=== PATIENT | female | born 1945 | race Caucasian/White ===

== ENCOUNTER 2020-03-12 20:03 | Inpatient (IN) | payer MEDICARE, OTHER ==
[2020-03-12 21:06] LABS: #Lymphocytes 0.6 thou/uL (1.20-3.40); #Monocytes 0.3 thou/uL (0.11-0.59); #Neutrophils 3.8 thou/uL (1.40-6.50); %Basophils 0.2 % (0.0-1.0); %Eosinophils 0.5 % (0.0-10.0); %Lymphocytes 13.4 % (21.0-51.0); %Monocytes 5.8 % (0.0-10.0); %Neutrophils 80.1 % (42.0-75.0); Hemoglobin 11.9 g/dL (12.0-16.0); Mean Corpuscular HGB CONC 31.9 g/dL (32.0-36.0); Mean Corpuscular Hemoglobin 26.6 pg (27.0-31.0); Mean Corpuscular Volume 83.6 fL (78.0-98.0); Mean Platelet Volume 8.7 fL (7.4-10.4); Platelet Count 222 thou/uL (130-400); RBC Distribution Width 15.5 % (11.5-14.5); Red Blood Cell (RBC) Count 4.47 mill/uL (4.20-5.40); White Blood Cell (WBC) Count 4.7 thou/uL (4.8-10.8)
--- NOTE | 2020-03-12 21:15 | RAD ---
PORTABLE CHEST: 03/12/20 INDICATIONS: Cough. No comparison. There is borderline cardiomegaly with mild vascular engorgement. There are hazy patchy bilateral peripheral lung infiltrates. IMPRESSION: Bilateral peripheral lung infiltrates which could represent COVID pneumonia. Close follow-up recommen ded. POS: AGW
[2020-03-12 21:27] LABS: ALT (SGPT) 13 U/L (8-55); AST (SGOT) 22 U/L (5-34); Albumin 3.4 g/dL (3.4-4.8); Alkaline Phosphatase 78 U/L (40-110); Anion Gap 16 mmol/L (10-20); BUN (Urea Nitrogen) 10 mg/dL (9.8-20.1); Bilirubin, Total 0.3 mg/dL (0.2-1.2); Calc. Creatinine Clearance 0 mL/min (70-130); Calcium 8.7 mg/dL (7.8-10.44); Carbon Dioxide 22 mmol/L (23-31); Chloride 103 mmol/L (98-107); Estimated GFR-MDRD 78; Globulin 4.3 g/dL (2.4-3.5); Glucose 135 mg/dL (83-110); Potassium 3.9 mmol/L (3.5-5.1); Protein, Total 7.7 g/dL (6.0-8.3); Sodium 137 mmol/L (136-145)
[2020-03-12] MEDS ORDERED: cefTRIAXone\\ROCEPHIN 1 GM VIAL ONE (21:35)
[2020-03-12] MEDS ORDERED: Azithromycin 500 MG VIAL ONE (21:35)
[2020-03-12] MEDS ORDERED: Dexamethasone 10 MG/ML VIAL ONE ×2 (21:43)
--- NOTE | 2020-03-12 21:52 | PDOC.FPRHP ---
- Allergies/Adverse Reactions Allergies Allergy/AdvReac Type Severity Reaction Status Date / Time Sulfa (Sulfonamide Allergy Verified 03/13/20 01:01 Antibiotics) - Home Medications Medication Instructions Recorded Confirmed Type Amlodipine [Norvasc] 1 tab PO BID 03/13/20 03/13/20 History Apixaban [Eliquis] 5 mg PO BID 03/13/20 03/13/20 History Famotidine [Pepcid] 1 tab PO DAILY 03/13/20 03/13/20 History Metoprolol Tartrate [Lopressor] 100 mg PO DAILY 03/13/20 03/13/20 History Omeprazole 40 mg PO DAILY 03/13/20 03/13/20 History - History PMHx: PSHx: FHx: Social: - Vital signs BP: [] HR: [] RR: [] Tmax: [] Pox: []% on [] Wt: [] FMR H&P: Results - Labs Result Diagrams: 03/13/20 02:55 03/13/20 02:55 Lab results: WBC 4.7 thou/uL (4.8-10.8) L 03/12/20 20:51 Hgb 11.9 g/dL (12.0-16.0) L 03/12/20 20:51 Hct 37.4 % (36.0-47.0) 03/12/20 20:51 MCV 83.6 fL (78.0-98.0) 03/12/20 20:51 Plt Count 222 thou/uL (130-400) 03/12/20 20:51 Neutrophils % 80.1 % (42.0-75.0) H 03/12/20 20:51 Sodium 137 mmol/L (136-145) 03/12/20 20:51 Potassium 3.9 mmol/L (3.5-5.1) 03/12/20 20:51 Chloride 103 mmol/L (98-107) 03/12/20 20:51 Carbon Dioxide 22 mmol/L (23-31) L 03/12/20 20:51 BUN 10 mg/dL (9.8-20.1) 03/12/20 20:51 Creatinine 0.73 mg/dL (0.6-1.1) 03/12/20 20:51 Glucose 135 mg/dL (83-110) H 03/12/20 20:51 Lactic Acid 0.8 mmol/L (0.5-2.2) 03/12/20 20:58 Calcium 8.7 mg/dL (7.8-10.44) 03/12/20 20:51 Total Bilirubin 0.3 mg/dL (0.2-1.2) 03/12/20 20:51 AST 22 U/L (5-34) 03/12/20 20:51 ALT 13 U/L (8-55) 03/12/20 20:51 Alkaline Phosphatase 78 U/L (40-110) 03/12/20 20:51 Serum Total Protein 7.7 g/dL (6.0-8.3) 03/12/20 20:51 Albumin 3.4 g/dL (3.4-4.8) 03/12/20 20:51 FMR H&P: Upper Level - Plan Date/Time: 03/12/202149 I, [], have evaluated this patient and agree with findings/plan as outlined by pharmacist intern resident. Pertinent changes/additions are listed here.
[2020-03-12] MEDS ORDERED: Calcium Carbonate 500 MG ChewTAB PO PRN (23:57)
[2020-03-12] MEDS ORDERED: Senokot S 8.6-50 MG TAB PO PRN (23:57)
[2020-03-12] MEDS ORDERED: Ondansetron PF 4 MG/2 ML Vial IVP PRN (23:57)
[2020-03-12] MEDS ORDERED: Acetaminophen 650 MG Suppository PR PRN (23:57)
[2020-03-13 00:21] LABS: Troponin I 0.032 ng/mL (< 0.028)
[2020-03-13 01:00] VITALS: BMI 54.2
--- NOTE | 2020-03-13 01:04 | PDOC.HHP ---
Hospitalist HPI - History of Present Illness dyspnea and tremors History of Present Illness: Case of an 71y/o female with pmhx of htn and dvt on elliquis who comes to hospital due to chills and dyspnea. patient refers she was on her usual state of health until 3 days ago when she patient describes as tremors which likely are chills dyspnea and cough. patient states these symptoms kept progressing with her been completetly out of breath with just going to bathroom, for which she came to hospital. at ED arrival patient was noted to be in respiratory failure with rr in the 33 and o2 sat 90% RA. patient denies fever sputum production heaaches or vomit, does refer some nausea Hospitalist ROS - Review of Systems All other systems reviewed; all pertinent +/- noted in HPI/Subj Hospitalist History - Past Medical History Source: patient Cardiac: reports: HTN Pulmonary: reports: deep vein thrombosis - Past Surgical History Past Surgical History: reports: Appendectomy, Hysterectomy - Family History Family History: reports: no pertinent history - Social History Smoking Status: Never smoker Alcohol: reports: None Drugs: reports: none - Exam General Appearance: awake alert Eye: PERRL, anicteric sclera ENT: normocephalic atraumatic, no oropharyngeal lesions Neck: supple, symmetric, no JVD Heart: RRR, no murmur, no gallops Respiratory: CTAB, no wheezes, no rales, tachypneic Gastrointestinal: soft, non-tender, non-distended Extremities: no cyanosis, no clubbing, no edema Extremities - other findings: b/l stasis dermatitis Skin: normal turgor, no lesions, no rashes Neurological: cranial nerve grossly intact, normal sensation to touch Musculoskeletal: normal tone, normal strength, no muscle wasting Psychiatric: normal affect, normal behavior, A&O x 3 Hospitalist Results - Labs Result Diagrams: 03/12/20 20:51 03/12/20 20:51 Lab results: WBC 4.7 thou/uL (4.8-10.8) L 03/12/20 20:51 Hgb 11.9 g/dL (12.0-16.0) L 03/12/20 20:51 Hct 37.4 % (36.0-47.0) 03/12/20 20:51 MCV 83.6 fL (78.0-98.0) 03/12/20 20:51 Plt Count 222 thou/uL (130-400) 03/12/20 20:51 Neutrophils % 80.1 % (42.0-75.0) H 03/12/20 20:51 Sodium 137 mmol/L (136-145) 03/12/20 20:51 Potassium 3.9 mmol/L (3.5-5.1) 03/12/20 20:51 Chloride 103 mmol/L (98-107) 03/12/20 20:51 Carbon Dioxide 22 mmol/L (23-31) L 03/12/20 20:51 BUN 10 mg/dL (9.8-20.1) 03/12/20 20:51 Creatinine 0.73 mg/dL (0.6-1.1) 03/12/20 20:51 Glucose 135 mg/dL (83-110) H 03/12/20 20:51 Lactic Acid 0.8 mmol/L (0.5-2.2) 03/12/20 20:58 Calcium 8.7 mg/dL (7.8-10.44) 03/12/20 20:51 Total Bilirubin 0.3 mg/dL (0.2-1.2) 03/12/20 20:51 AST 22 U/L (5-34) 03/12/20 20:51 ALT 13 U/L (8-55) 03/12/20 20:51 Alkaline Phosphatase 78 U/L (40-110) 03/12/20 20:51 Troponin I 0.032 ng/mL (< 0.028) H 03/12/20 23:47 Serum Total Protein 7.7 g/dL (6.0-8.3) 03/12/20 20:51 Albumin 3.4 g/dL (3.4-4.8) 03/12/20 20:51 - Radiology Interpretation Chest x-ray Additional Comment: b/l peripheral infiltrates consistent w covid pneumonia Hospitalist H&P A/P - Problem (1) Pneumonia due to COVID-19 virus Code(s): U07.1 - COVID-19; J12.89 - OTHER VIRAL PNEUMONIA Status: Acute (2) Acute respiratory failure with hypoxia Code(s): J96.01 - ACUTE RESPIRATORY FAILURE WITH HYPOXIA Status: Acute (3) DVT (deep venous thrombosis) Code(s): I82.409 - ACUTE EMBOLISM AND THOMBOS UNSP DEEP VN UNSP LOWER EXTREMITY Status: Acute (4) HTN (hypertension) Code(s): I10 - ESSENTIAL (PRIMARY) HYPERTENSION Status: Acute (5) Stasis dermatitis of both legs Code(s): I87.2 - VENOUS INSUFFICIENCY (CHRONIC) (PERIPHERAL) Status: Acute - Plan Plan: 74y/o female with complaining of dyspnea chills and cough, found with 90s sat at RA and covid pneumonia covid pneumonia - positive test - cxr consistent with viral pneumonia - on rocephin and azithromycin prophylactically - dexamethasone 6mg ivd -lymphopenia consistent w covid 19 acute respiratoty failure - rr in the 30s - 02 sats in the 90s - 02 supplementation w goal of above 92% htn - continue home meds dvt - continue elliquis stasis dermatitis - wound care consulted
[2020-03-13 03:06] LABS: #Basophils 0.1 thou/uL (0.0-0.2); #Lymphocytes 0.5 thou/uL (1.20-3.40); #Monocytes 0.1 thou/uL (0.11-0.59); #Neutrophils 3.8 thou/uL (1.40-6.50); %Basophils 1.9 % (0.0-1.0); %Eosinophils 0.7 % (0.0-10.0); %Lymphocytes 10.8 % (21.0-51.0); %Monocytes 2.3 % (0.0-10.0); %Neutrophils 84.2 % (42.0-75.0); Hemoglobin 11.3 g/dL (12.0-16.0); Mean Corpuscular HGB CONC 32.9 g/dL (32.0-36.0); Mean Corpuscular Hemoglobin 27.5 pg (27.0-31.0); Mean Corpuscular Volume 83.7 fL (78.0-98.0); Mean Platelet Volume 8.5 fL (7.4-10.4); Platelet Count 219 thou/uL (130-400); RBC Distribution Width 15.4 % (11.5-14.5); Red Blood Cell (RBC) Count 4.12 mill/uL (4.20-5.40); White Blood Cell (WBC) Count 4.5 thou/uL (4.8-10.8)
[2020-03-13 03:39] LABS: ALT (SGPT) 14 U/L (8-55); AST (SGOT) 22 U/L (5-34); Albumin 3.2 g/dL (3.4-4.8); Alkaline Phosphatase 71 U/L (40-110); Anion Gap 19 mmol/L (10-20); BUN (Urea Nitrogen) 10 mg/dL (9.8-20.1); Bilirubin, Total 0.2 mg/dL (0.2-1.2); Calc. Creatinine Clearance 138 mL/min (70-130); Calcium 8.3 mg/dL (7.8-10.44); Carbon Dioxide 19 mmol/L (23-31); Chloride 104 mmol/L (98-107); Estimated GFR-MDRD 82; Glucose 187 mg/dL (83-110); Protein, Total 7.2 g/dL (6.0-8.3); Sodium 138 mmol/L (136-145)
[2020-03-13] MEDS: Apixaban 5 MG TAB PO SCH ×2 (08:18→20:33)
[2020-03-13] MEDS: Metoprolol Tartrate 100 MG TAB PO SCH (08:18)
[2020-03-13] MEDS: Dexamethasone 4 mg/ml Vial SLOW IVP SCH (08:19)
[2020-03-13] MEDS: Amlodipine 5 MG TAB PO SCH ×2 (08:19→20:33)
[2020-03-13] MEDS: HYDROcodone/Acetaminophen 5/325 mg Tablet PO PRN ×2 (08:48→20:35)
[2020-03-13] MEDS ORDERED: Famotidine 20 MG TAB PO SCH (09:00)
--- NOTE | 2020-03-13 13:18 | CON ---
DATE OF CONSULTATION: 03/13/2020 REASON FOR CONSULTATION: COVID pneumonia. HISTORY OF PRESENT ILLNESS: A 74-year-old with history of hypertension and obesity, who 3 days before admission developed weakness, tremor, cough without fever. This was associated with some dyspnea. Initial evaluation showed O2 saturation 94% on room air and then 97 on 2 L oxygen supplementation, temperature was normal, and BP 160/70. She had diffuse bilateral fluffy infiltrates in the lung exam, more concentrated in the lower lung regions, right and left side. Initial lab data with a sodium 137 and creatinine 0.73. Liver profile normal. Albumin 3.4. White cell count 4.7, hemoglobin 11.9, platelets 222, and 80% neutrophils. COVID PCR was positive. The patient has been given Decadron and azithromycin. She is currently awake and she is feeling a little better, not coughing as much. No headaches. No chest pain. No diarrhea. Voiding without difficulty. No nausea or vomiting. PAST MEDICAL HISTORY: 1. Hypertension. 2. Obesity. SOCIAL HISTORY: She lives in [place] with son. Son contracted COVID recently, he has done well and relatively speaking. She is retired. No smoking history. ALLERGIES: SULFA DRUGS. CURRENT MEDICATIONS: 1. Tylenol. 2. [place]. 3. Norvasc. 4. Eliquis. 5. Azithromycin. 6. Decadron. 7. Lopressor. 8. Zofran. 9. Protonix. PHYSICAL EXAMINATION: VITAL SIGNS: T-max 98.4, blood pressure 160/80, pulse 84, respirations 20, and O2 saturation 95 and she is at 3 L nasal cannula. SKIN: No areas of skin breakdown. She has a peripheral IV access. She is voiding in the diaper. No lymphadenopathy. HEENT: Ocular movements conjugate. Oral cavity with numerous missing teeth. NECK: Supple. No jugular vein distention. LUNGS: Symmetric air entry. Faint crackles at the bases. HEART: S1 and S2. Regular rate. No S3 or S4. ABDOMEN: Soft, not distended or tender. No ascites. No bladder distention. EXTREMITIES: No joint inflammatory activity. No edema. Pulses 1+ in dorsalis pedis. Moves extremities equally. NEUROLOGIC: Cognitive function appears to be intact. Speech is normal. She can speak in full sentences. LABORATORY DATA: Followup WBC 4.5 and hemoglobin 11. Creatinine 0.7. Liver profile still normal. Two sets of blood culture, no growth thus far. ASSESSMENT: 1. Hypertension. 2. Obesity. 3. COVID pneumonia, early in the course of illness, already with requirement for 3 L of supplementation of O2, but she is saturating adequately. She is on Decadron and I will go ahead and prescribe remdesivir. She is kind of borderline according to the criteria, but she looks like she is going to deteriorate further. Monitor inflammatory markers and remdesivir laboratory data to evaluate for toxicity. I have discussed the indications for emergency use authorization of the drug with the patient. I also discussed potential adverse reaction, particularly liver and kidney toxicity and monitoring that will be implemented for early detection and the fact that it seems to reduce the length of illness in the randomized control trial that was completed recently. The patient understood and agreed with the administration of the drug. Job ID: [id number]
[2020-03-13] MEDS ORDERED: REMDESIVIR (EUA) 200 MG in Sodium Chloride 0.9% 250 ML 210 ML IV SCH (14:15)
[2020-03-13] MEDS ORDERED: Prevnar 13-Val Conj/PF 0.5 ML SYRINGE IM ONE (21:00)
[2020-03-14] MEDS: HYDROcodone/Acetaminophen 5/325 mg Tablet PO PRN ×4 (00:43→22:11)
[2020-03-14 07:04] LABS: ALT (SGPT) 20 U/L (8-55); AST (SGOT) 31 U/L (5-34); Albumin 3.2 g/dL (3.4-4.8); Alkaline Phosphatase 68 U/L (40-110); Bilirubin, Direct 0.2 mg/dL (0.1-0.3); Bilirubin, Total 0.2 mg/dL (0.2-1.2)
--- NOTE | 2020-03-14 08:16 | PDOC.HOSPP ---
- Subjective Encounter Date: 03/14/20 Encounter Time: 11:00 Subjective: Patient reports feeling a bit better today. No shortness of breath at rest on O2. Persistent cough. No fever. Hasn't gotten out of bed. Uses a short walker at home due to her height. - Objective Vital Signs & Weight: Vital Signs (12 hours) Temp Pulse Resp BP Pulse Ox 03/14/20 00:00 98.1 F 90 18 152/80 H 96 03/13/20 20:33 83 Weight Admit Weight 268 lb 8 oz Weight 268 lb 8 oz I&O: 03/13/20 03/14/20 03/15/20 06:59 06:59 06:59 Intake Total 200 850 Output Total 150 800 Balance 50 50 Result Diagrams: 03/13/20 02:55 03/13/20 02:55 Hospitalist ROS - Review of Systems Constitutional: denies: fever, chills Respiratory: reports: cough. denies: shortness of breath Cardiovascular: denies: chest pain, palpitations Gastrointestinal: denies: nausea, vomiting, abdominal pain - Medication Medications: Active Medications Generic Name Dose Route Start Last Admin Trade Name Freq PRN Reason Stop Dose Admin Hydrocodone Bitart/Acetaminophen 1 tab 03/12/20 23:57 03/14/20 05:19 [place] 5/325 PO 1 tab Q4H PRN Administration Moderate Pain (4-6) Amlodipine Besylate 5 mg 03/13/20 09:00 03/13/20 20:33 Norvasc PO 5 mg BID GASTON Administration Apixaban 5 mg 03/13/20 09:00 03/13/20 20:33 Eliquis PO 5 mg BID GASTON Administration Dexamethasone 6 mg 03/13/20 09:00 03/13/20 08:19 Decadron SLOW IVP 6 mg DAILY GASTON Administration Metoprolol Tartrate 100 mg 03/13/20 09:00 03/13/20 08:18 Lopressor PO 100 mg DAILY GASTON Administration Mineral Oil/White Petrolatum 0 gm 03/13/20 09:00 03/13/20 15:54 Aquaphor 99 Gm TOP Not Given Q3D GASTON Pantoprazole Sodium 40 mg 03/13/20 09:00 03/13/20 08:19 Protonix PO 40 mg DAILY GASTON Administration Pantoprazole Sodium 40 mg 03/13/20 09:00 03/13/20 08:20 Protonix PO Not Given DAILY GASTON - Exam General Appearance: NAD, awake alert ENT: moist mucosa Heart: RRR, no murmur, no gallops, no rubs Respiratory: CTAB, no wheezes, no rales, no ronchi Gastrointestinal: soft, non-tender, non-distended, normal bowel sounds Extremities: no edema Psychiatric: normal affect, normal behavior, A&O x 3 Hosp A/P (1) Pneumonia due to COVID-19 virus Code(s): U07.1 - COVID-19; J12.89 - OTHER VIRAL PNEUMONIA Status: Acute (2) Acute respiratory failure with hypoxia Code(s): J96.01 - ACUTE RESPIRATORY FAILURE WITH HYPOXIA Status: Acute (3) HTN (hypertension) Code(s): I10 - ESSENTIAL (PRIMARY) HYPERTENSION Status: Chronic Qualifiers: Hypertension type: essential hypertension Qualified Code(s): I10 - Essential (primary) hypertension (4) DVT (deep venous thrombosis) Code(s): I82.409 - ACUTE EMBOLISM AND THOMBOS UNSP DEEP VN UNSP LOWER EXTREMITY Status: Acute Qualifiers: DVT location: lower extremity - Plan Patient on 3L NC O2. Getting Dexamethasone, Remdesivir, Azithromycin. Dr. Gold Lewis for history of DVT PT eval and get her ambulating GI proph: Pepcid BID
[2020-03-14] MEDS: Dexamethasone 4 mg/ml Vial SLOW IVP SCH (08:42)
[2020-03-14] MEDS: Apixaban 5 MG TAB PO SCH ×2 (08:42→22:10)
[2020-03-14] MEDS: Metoprolol Tartrate 100 MG TAB PO SCH (08:42)
[2020-03-14] MEDS: Amlodipine 5 MG TAB PO SCH ×2 (08:42→22:10)
[2020-03-14] MEDS: Loratadine 10 MG TAB PO PRN (14:02)
[2020-03-14] MEDS: REMDESIVIR (EUA) 100 MG in Sodium Chloride 0.9% 250 ML 230 ML IV SCH (16:06)
[2020-03-14] MEDS ORDERED: cefTRIAXone\\ROCEPHIN 1 GM in Sodium Chloride 0.9% 100 ML IVPB SCH (22:00)
[2020-03-14] MEDS: Ondansetron ODT 4 MG TAB PO PRN (22:11)
[2020-03-14] MEDS ORDERED: Azithromycin 500 MG in Sodium Chloride 0.9% 250 ML 250 ML IVPB SCH (23:00)
[2020-03-15] MEDS: HYDROcodone/Acetaminophen 5/325 mg Tablet PO PRN ×2 (03:57→20:55)
[2020-03-15 07:26] LABS: ALT (SGPT) 22 U/L (8-55); AST (SGOT) 26 U/L (5-34); Albumin 3.1 g/dL (3.4-4.8); Alkaline Phosphatase 68 U/L (40-110); Bilirubin, Direct 0.2 mg/dL (0.1-0.3); Bilirubin, Total 0.3 mg/dL (0.2-1.2); Protein, Total 6.8 g/dL (6.0-8.3)
--- NOTE | 2020-03-15 08:34 | PDOC.HOSPP ---
- Subjective Encounter Date: 03/15/20 Encounter Time: 11:00 Subjective: Patient reports SOB a bit better. Not much cough unless move around. PT came by to get her up this morning. - Objective Vital Signs & Weight: Vital Signs (12 hours) Temp Pulse Resp BP BP Pulse Ox 03/15/20 02:27 97 03/15/20 00:00 98.2 F 83 20 171/64 H 93 L 03/14/20 22:10 88 194/72 H Weight Admit Weight 268 lb 8 oz Weight 268 lb 8 oz I&O: 03/14/20 03/15/20 03/16/20 06:59 06:59 06:59 Intake Total 850 970 Output Total 800 400 Balance 50 570 Result Diagrams: 03/13/20 02:55 03/13/20 02:55 Hospitalist ROS - Review of Systems Constitutional: denies: fever, chills Respiratory: reports: cough, shortness of breath Cardiovascular: denies: chest pain, palpitations, orthopnea Gastrointestinal: denies: nausea, vomiting, abdominal pain, diarrhea - Medication Medications: Active Medications Generic Name Dose Route Start Last Admin Trade Name Freq PRN Reason Stop Dose Admin Hydrocodone Bitart/Acetaminophen 1 tab 03/12/20 23:57 03/15/20 03:57 [place] 5/325 PO 1 tab Q4H PRN Administration Moderate Pain (4-6) Amlodipine Besylate 5 mg 03/13/20 09:00 03/14/20 22:10 Norvasc PO 5 mg BID GASTON Administration Apixaban 5 mg 03/13/20 09:00 03/14/20 22:10 Eliquis PO 5 mg BID GASTON Administration Dexamethasone 6 mg 03/13/20 09:00 03/14/20 08:42 Decadron SLOW IVP 6 mg DAILY GASTON Administration REMDESIVIR (EUA) 100 mg/ 250 mls @ 250 mls/hr 03/14/20 15:00 03/14/20 16:06 Sodium Chloride IV 03/17/20 15:59 250 mls 1500 GASTON Administration Loratadine 10 mg 03/14/20 13:51 03/14/20 14:02 Claritin PO 10 mg DAILY PRN Administration Itching Metoprolol Tartrate 100 mg 03/13/20 09:00 03/14/20 08:42 Lopressor PO 100 mg DAILY GASTON Administration Mineral Oil/White Petrolatum 0 gm 03/13/20 09:00 03/13/20 15:54 Aquaphor 99 Gm TOP Not Given Q3D GASTON Ondansetron HCl 4 mg 03/12/20 23:57 03/14/20 22:11 Zofran Odt PO 4 mg Q6H PRN Administration Nausea/Vomiting Pantoprazole Sodium 40 mg 03/13/20 09:00 03/14/20 08:42 Protonix PO 40 mg DAILY GASTON Administration - Exam General Appearance: NAD, awake alert ENT: moist mucosa Heart: RRR, no murmur, no gallops, no rubs Respiratory: CTAB, no wheezes, no rales, no ronchi Gastrointestinal: soft, non-tender, non-distended, normal bowel sounds Psychiatric: normal affect, normal behavior, A&O x 3 Hosp A/P (1) Pneumonia due to COVID-19 virus Code(s): U07.1 - COVID-19; J12.89 - OTHER VIRAL PNEUMONIA Status: Acute (2) Acute respiratory failure with hypoxia Code(s): J96.01 - ACUTE RESPIRATORY FAILURE WITH HYPOXIA Status: Acute (3) HTN (hypertension) Code(s): I10 - ESSENTIAL (PRIMARY) HYPERTENSION Status: Chronic Qualifiers: Hypertension type: essential hypertension Qualified Code(s): I10 - Essential (primary) hypertension (4) DVT (deep venous thrombosis) Code(s): I82.409 - ACUTE EMBOLISM AND THOMBOS UNSP DEEP VN UNSP LOWER EXTREMITY Status: Acute Qualifiers: DVT location: lower extremity - Plan Patient on 2.5L NC O2. Getting Dexamethasone, Remdesivir, Azithromycin. Dr. Gold Lewis for history of DVT PT eval and get her ambulating GI proph: Pepcid BID
[2020-03-15] MEDS: Metoprolol Tartrate 100 MG TAB PO SCH (09:23)
[2020-03-15] MEDS: Dexamethasone 4 mg/ml Vial SLOW IVP SCH (09:23)
[2020-03-15] MEDS: Apixaban 5 MG TAB PO SCH ×2 (09:23→20:55)
[2020-03-15] MEDS: Amlodipine 5 MG TAB PO SCH ×2 (09:23→20:55)
[2020-03-15] MEDS: REMDESIVIR (EUA) 100 MG in Sodium Chloride 0.9% 250 ML 230 ML IV SCH (15:15)
[2020-03-16] MEDS: HYDROcodone/Acetaminophen 5/325 mg Tablet PO PRN ×5 (00:27→20:16)
[2020-03-16] MEDS: Acetaminophen 325 MG TAB PO PRN ×2 (01:20→23:10)
[2020-03-16 06:14] LABS: #Eosinphils 0.1 thou/uL (0.0-0.7); #Lymphocytes 1.5 thou/uL (1.20-3.40); #Monocytes 1.1 thou/uL (0.11-0.59); #Neutrophils 6.7 thou/uL (1.40-6.50); %Basophils 0.1 % (0.0-1.0); %Eosinophils 0.7 % (0.0-10.0); %Lymphocytes 15.5 % (21.0-51.0); %Monocytes 11.8 % (0.0-10.0); %Neutrophils 71.9 % (42.0-75.0); Hemoglobin 11.5 g/dL (12.0-16.0); Mean Corpuscular HGB CONC 31.5 g/dL (32.0-36.0); Mean Corpuscular Hemoglobin 26.5 pg (27.0-31.0); Platelet Count 377 thou/uL (130-400); RBC Distribution Width 15.5 % (11.5-14.5); Red Blood Cell (RBC) Count 4.34 mill/uL (4.20-5.40); White Blood Cell (WBC) Count 9.4 thou/uL (4.8-10.8)
[2020-03-16 06:38] LABS: Anion Gap 15 mmol/L (10-20); BUN (Urea Nitrogen) 22 mg/dL (9.8-20.1); CRP (Inflammatory) 4.21 mg/dL (= or < 0.5); Calc. Creatinine Clearance 142 mL/min (70-130); Calcium 8.4 mg/dL (7.8-10.44); Carbon Dioxide 26 mmol/L (23-31); Chloride 105 mmol/L (98-107); Estimated GFR-MDRD 85; Glucose 153 mg/dL (83-110); Potassium 3.6 mmol/L (3.5-5.1); Sodium 142 mmol/L (136-145)
[2020-03-16 06:40] LABS: ALT (SGPT) 21 U/L (8-55); AST (SGOT) 22 U/L (5-34); Alkaline Phosphatase 66 U/L (40-110); Bilirubin, Direct 0.2 mg/dL (0.1-0.3); Bilirubin, Total 0.3 mg/dL (0.2-1.2); Protein, Total 6.6 g/dL (6.0-8.3)
[2020-03-16] MEDS: Dexamethasone 4 mg/ml Vial SLOW IVP SCH (08:16)
[2020-03-16] MEDS: Amlodipine 5 MG TAB PO SCH ×2 (08:17→20:16)
[2020-03-16] MEDS: Apixaban 5 MG TAB PO SCH ×2 (08:17→20:16)
[2020-03-16] MEDS: Metoprolol Tartrate 100 MG TAB PO SCH (08:17)
--- NOTE | 2020-03-16 09:06 | PDOC.HOSPP ---
- Subjective Encounter Date: 03/16/20 Encounter Time: 10:00 Subjective: Patient with possibly improved SOB. Still needing 3-4L NC. Quite weak but patient states this is chronic. She has to have her help with any movement at home. He has also gotten Covid but doing better with it than her and not hospitalized. - Objective Vital Signs & Weight: Vital Signs (12 hours) Pulse BP 03/16/20 08:17 87 120/66 Weight Admit Weight 268 lb 8 oz Weight 268 lb 8 oz I&O: 03/15/20 03/16/20 03/17/20 06:59 06:59 06:59 Intake Total 970 1350 Output Total 400 1600 Balance 570 -250 Result Diagrams: 03/16/20 05:53 03/16/20 05:53 Hospitalist ROS - Review of Systems Constitutional: denies: fever, chills Respiratory: reports: cough, shortness of breath Cardiovascular: denies: chest pain, palpitations Gastrointestinal: denies: nausea, vomiting, abdominal pain - Medication Medications: Active Medications Generic Name Dose Route Start Last Admin Trade Name Freq PRN Reason Stop Dose Admin Acetaminophen 650 mg 03/12/20 23:57 03/16/20 01:20 Tylenol PO 650 mg Q4H PRN Administration Headache/Fever/Mild Pain (1-3) Hydrocodone Bitart/Acetaminophen 1 tab 03/12/20 23:57 03/16/20 08:50 [place] 5/325 PO 1 tab Q4H PRN Administration Moderate Pain (4-6) Amlodipine Besylate 5 mg 03/13/20 09:00 03/16/20 08:17 Norvasc PO 5 mg BID GASTON Administration Apixaban 5 mg 03/13/20 09:00 03/16/20 08:17 Eliquis PO 5 mg BID GASTON Administration Dexamethasone 6 mg 03/13/20 09:00 03/16/20 08:16 Decadron SLOW IVP 6 mg DAILY GASTON Administration REMDESIVIR (EUA) 100 mg/ 250 mls @ 250 mls/hr 03/14/20 15:00 03/15/20 15:15 Sodium Chloride IV 03/17/20 15:59 250 mls 1500 GASTON Administration Loratadine 10 mg 03/14/20 13:51 03/14/20 14:02 Claritin PO 10 mg DAILY PRN Administration Itching Metoprolol Tartrate 100 mg 03/13/20 09:00 03/16/20 08:17 Lopressor PO 100 mg DAILY GASTON Administration Mineral Oil/White Petrolatum 0 gm 03/13/20 09:00 03/16/20 08:17 Aquaphor 99 Gm TOP 1 applic Q3D GASTON Administration Ondansetron HCl 4 mg 03/12/20 23:57 03/14/20 22:11 Zofran Odt PO 4 mg Q6H PRN Administration Nausea/Vomiting Pantoprazole Sodium 40 mg 03/13/20 09:00 03/16/20 08:16 Protonix PO 40 mg DAILY GASTON Administration - Exam General Appearance: NAD, awake alert ENT: moist mucosa Heart: RRR, no murmur, no gallops, no rubs Respiratory: CTAB, no wheezes, no rales, no ronchi Gastrointestinal: soft, non-tender, non-distended, normal bowel sounds Psychiatric: normal affect, normal behavior, A&O x 3 Hosp A/P (1) Pneumonia due to COVID-19 virus Code(s): U07.1 - COVID-19; J12.89 - OTHER VIRAL PNEUMONIA Status: Acute (2) Acute respiratory failure with hypoxia Code(s): J96.01 - ACUTE RESPIRATORY FAILURE WITH HYPOXIA Status: Acute (3) HTN (hypertension) Code(s): I10 - ESSENTIAL (PRIMARY) HYPERTENSION Status: Chronic Qualifiers: Hypertension type: essential hypertension Qualified Code(s): I10 - Essential (primary) hypertension (4) DVT (deep venous thrombosis) Code(s): I82.409 - ACUTE EMBOLISM AND THOMBOS UNSP DEEP VN UNSP LOWER EXTREMITY Status: Acute Qualifiers: DVT location: lower extremity - Plan Patient on 3-4L NC O2. Getting Dexamethasone, Remdesivir, Azithromycin. Dr. Gold Lewis for history of DVT PT eval and get her ambulating if possible GI proph: Pepcid BID
--- NOTE | 2020-03-16 13:39 | PRG ---
DATE OF SERVICE: 03/16/2020 DIAGNOSTIC STUDIES: Ms. Fabian continues with intermittent coughing, not as much as before. Mild dyspnea. No abdominal pain. No diarrhea. OBJECTIVE: VITAL SIGNS: T-max 98.2, blood pressure 150/82, pulse 87, respirations 20, and O2 saturation 94 on 4 L nasal cannula. She had been at 2 before and then at 3, it is kind of going up and down on her requirements. LUNGS: Symmetric air entry. HEART: S1 and S2. Regular rate. ABDOMEN: Soft, not distended. EXTREMITIES: Moves extremities equally. LABORATORY DATA: White cell count is 9.4, hemoglobin 11, platelets 377, and 71% neutrophils. The D-dimer is down to 0.98, very minimal decrease. The ferritin is down from 162 to 97, and the CRP is down a bit too from 5.3 to 4.2. MEDICATIONS: She continues on Decadron, remdesivir, and Eliquis. ASSESSMENT AND DISCUSSION: 1. Hypertension. 2. Obesity. 3. COVID pneumonia, early in course of illness. This is the 7th day of illness at this point in time. Will continue Decadron and remdesivir, so we will see if looks like she is turning the corner now with decrease in inflammatory markers. Hopefully, we will see a decrease in the O2 supplementation requirements going forward. Job ID: [id number]
[2020-03-16] MEDS: REMDESIVIR (EUA) 100 MG in Sodium Chloride 0.9% 250 ML 230 ML IV SCH (14:52)
[2020-03-17] MEDS: HYDROcodone/Acetaminophen 5/325 mg Tablet PO PRN ×4 (00:57→20:11)
[2020-03-17] MEDS: Loratadine 10 MG TAB PO PRN (00:58)
[2020-03-17 06:34] LABS: ALT (SGPT) 21 U/L (8-55); AST (SGOT) 18 U/L (5-34); Alkaline Phosphatase 62 U/L (40-110); Bilirubin, Direct 0.2 mg/dL (0.1-0.3); Bilirubin, Total 0.3 mg/dL (0.2-1.2); Protein, Total 6.7 g/dL (6.0-8.3)
[2020-03-17] MEDS: Dexamethasone 4 mg/ml Vial SLOW IVP SCH (07:58)
[2020-03-17] MEDS: Amlodipine 5 MG TAB PO SCH ×2 (07:58→20:10)
[2020-03-17] MEDS: Metoprolol Tartrate 100 MG TAB PO SCH (07:58)
[2020-03-17] MEDS: Apixaban 5 MG TAB PO SCH ×2 (07:59→20:11)
--- NOTE | 2020-03-17 12:07 | PDOC.HOSPP ---
- Subjective Encounter Date: 03/17/20 Encounter Time: 12:05 Subjective: less sob, min cough - Objective Vital Signs & Weight: Vital Signs (12 hours) Temp Pulse Resp BP Pulse Ox 03/17/20 08:00 98.4 F 105 H 18 160/81 H 93 L 03/17/20 07:58 93 03/17/20 05:44 92 L 03/17/20 04:00 98.4 F 93 18 117/64 93 L Weight Admit Weight 268 lb 8 oz Weight 268 lb 8 oz I&O: 03/16/20 03/17/20 03/18/20 06:59 06:59 06:59 Intake Total 1350 Output Total 1600 Balance -250 Result Diagrams: 03/16/20 05:53 03/16/20 05:53 Hospitalist ROS - Medication Medications: Active Medications Generic Name Dose Route Start Last Admin Trade Name Freq PRN Reason Stop Dose Admin Acetaminophen 650 mg 03/12/20 23:57 03/16/20 23:10 Tylenol PO 650 mg Q4H PRN Administration Headache/Fever/Mild Pain (1-3) Hydrocodone Bitart/Acetaminophen 1 tab 03/12/20 23:57 03/17/20 07:58 [place] 5/325 PO 1 tab Q4H PRN Administration Moderate Pain (4-6) Amlodipine Besylate 5 mg 03/13/20 09:00 03/17/20 07:58 Norvasc PO 5 mg BID GASTON Administration Apixaban 5 mg 03/13/20 09:00 03/17/20 07:59 Eliquis PO 5 mg BID GASTON Administration Dexamethasone 6 mg 03/13/20 09:00 03/17/20 07:58 Decadron SLOW IVP 6 mg DAILY GASTON Administration REMDESIVIR (EUA) 100 mg/ 250 mls @ 250 mls/hr 03/14/20 15:00 03/16/20 14:52 Sodium Chloride IV 03/17/20 15:59 250 mls 1500 GASTON Administration Loratadine 10 mg 03/14/20 13:51 03/17/20 00:58 Claritin PO 10 mg DAILY PRN Administration Itching Metoprolol Tartrate 100 mg 03/13/20 09:00 03/17/20 07:58 Lopressor PO 100 mg DAILY GASTON Administration Mineral Oil/White Petrolatum 0 gm 03/13/20 09:00 03/16/20 08:17 Aquaphor 99 Gm TOP 1 applic Q3D GASTON Administration Ondansetron HCl 4 mg 03/12/20 23:57 03/14/20 22:11 Zofran Odt PO 4 mg Q6H PRN Administration Nausea/Vomiting Pantoprazole Sodium 40 mg 03/13/20 09:00 03/17/20 07:58 Protonix PO 40 mg DAILY GASTON Administration - Exam General Appearance: awake alert Neck: no JVD Heart: RRR, no murmur Respiratory - other findings: coarse BS Gastrointestinal: soft, non-tender, non-distended, normal bowel sounds Extremities: no edema Hosp A/P (1) Acute respiratory failure with hypoxia Code(s): J96.01 - ACUTE RESPIRATORY FAILURE WITH HYPOXIA Status: Acute (2) DVT (deep venous thrombosis) Code(s): I82.409 - ACUTE EMBOLISM AND THOMBOS UNSP DEEP VN UNSP LOWER EXTREMITY Status: Acute Qualifiers: DVT location: lower extremity (3) Pneumonia due to COVID-19 virus Code(s): U07.1 - COVID-19; J12.89 - OTHER VIRAL PNEUMONIA Status: Acute (4) HTN (hypertension) Code(s): I10 - ESSENTIAL (PRIMARY) HYPERTENSION Status: Chronic Qualifiers: Hypertension type: essential hypertension Qualified Code(s): I10 - Essential (primary) hypertension - Plan discusss with ID cont remdisvir, zithromax, eliquis, etc
[2020-03-17] MEDS: REMDESIVIR (EUA) 100 MG in Sodium Chloride 0.9% 250 ML 230 ML IV SCH (14:59)
[2020-03-18] MEDS: HYDROcodone/Acetaminophen 5/325 mg Tablet PO PRN ×3 (02:34→19:49)
[2020-03-18] MEDS: Dexamethasone 4 mg/ml Vial SLOW IVP SCH (08:47)
[2020-03-18] MEDS: Amlodipine 5 MG TAB PO SCH ×2 (08:49→19:49)
[2020-03-18] MEDS: Metoprolol Tartrate 100 MG TAB PO SCH (08:49)
[2020-03-18] MEDS: Apixaban 5 MG TAB PO SCH ×2 (08:49→19:49)
--- NOTE | 2020-03-18 11:15 | PDOC.HOSPP ---
- Subjective Encounter Date: 03/18/20 Encounter Time: 11:05 Subjective: continues to slowly improve. no fever, etc - Objective Vital Signs & Weight: Vital Signs (12 hours) Temp Pulse Resp BP Pulse Ox 03/18/20 08:00 97.8 F 97 20 136/75 94 L 03/18/20 04:00 98.6 F 89 22 H 144/85 H 92 L 03/18/20 03:48 91 L Weight Admit Weight 268 lb 8 oz Weight 268 lb 8 oz I&O: 03/17/20 03/18/20 03/19/20 06:59 06:59 06:59 Intake Total 240 Output Total 900 Balance -660 Result Diagrams: 03/16/20 05:53 03/16/20 05:53 Hospitalist ROS - Medication Medications: Active Medications Generic Name Dose Route Start Last Admin Trade Name Freq PRN Reason Stop Dose Admin Acetaminophen 650 mg 03/12/20 23:57 03/16/20 23:10 Tylenol PO 650 mg Q4H PRN Administration Headache/Fever/Mild Pain (1-3) Hydrocodone Bitart/Acetaminophen 1 tab 03/12/20 23:57 03/18/20 08:50 [place] 5/325 PO 1 tab Q4H PRN Administration Moderate Pain (4-6) Amlodipine Besylate 5 mg 03/13/20 09:00 03/18/20 08:49 Norvasc PO 5 mg BID GASTON Administration Apixaban 5 mg 03/13/20 09:00 03/18/20 08:49 Eliquis PO 5 mg BID GASTON Administration Dexamethasone 6 mg 03/13/20 09:00 03/18/20 08:47 Decadron SLOW IVP 6 mg DAILY GASTON Administration Loratadine 10 mg 03/14/20 13:51 03/17/20 00:58 Claritin PO 10 mg DAILY PRN Administration Itching Metoprolol Tartrate 100 mg 03/13/20 09:00 03/18/20 08:49 Lopressor PO 100 mg DAILY GASTON Administration Mineral Oil/White Petrolatum 0 gm 03/13/20 09:00 03/16/20 08:17 Aquaphor 99 Gm TOP 1 applic Q3D GASTON Administration Ondansetron HCl 4 mg 03/12/20 23:57 03/14/20 22:11 Zofran Odt PO 4 mg Q6H PRN Administration Nausea/Vomiting Pantoprazole Sodium 40 mg 03/13/20 09:00 03/18/20 08:49 Protonix PO 40 mg DAILY GASTON Administration - Exam General Appearance: awake alert Neck: no JVD Heart: RRR, no murmur Respiratory: CTAB Gastrointestinal: soft, non-tender, normal bowel sounds Extremities: 1+ LE edema Hosp A/P (1) Acute respiratory failure with hypoxia Code(s): J96.01 - ACUTE RESPIRATORY FAILURE WITH HYPOXIA Status: Acute (2) DVT (deep venous thrombosis) Code(s): I82.409 - ACUTE EMBOLISM AND THOMBOS UNSP DEEP VN UNSP LOWER EXTREMITY Status: Acute Qualifiers: DVT location: lower extremity (3) Pneumonia due to COVID-19 virus Code(s): U07.1 - COVID-19; J12.89 - OTHER VIRAL PNEUMONIA Status: Acute (4) HTN (hypertension) Code(s): I10 - ESSENTIAL (PRIMARY) HYPERTENSION Status: Chronic Qualifiers: Hypertension type: essential hypertension Qualified Code(s): I10 - Essential (primary) hypertension - Plan complted remdisvir cont decadron still requiring 3-4 li per NC of O2 discuss with ID
--- NOTE | 2020-03-18 16:22 | PRG ---
DATE OF SERVICE: 03/18/2020 SUBJECTIVE: Ms. Kelley is a little bit confused. She states that she is feeling slowly but surely better. Not coughing much. No vomiting. No abdominal pain. OBJECTIVE: VITAL SIGNS: Temperature is normal, blood pressure 130/75, flow rate at 3, she is keeping at 94% O2 saturation. She was down to 91 earlier today and 90 at 7 o'clock yesterday. She has had nasal cannula at 3 L. GENERAL: Awake, alert. She is a little bit confused. She has started asking me to fix something in her and she could not really figure out what it was that she needed to fix. LUNGS: Clear. HEART: S1 and S2. Regular rate. ABDOMEN: Soft, not distended. EXTREMITIES: Some edema in the lower extremities. LABORATORY DATA: Ferritin keeps going down slowly at 97.68. CRP down to 2.93. Albumin 3.0. White cell count 9.4, hemoglobin 11.5, platelets 377. ASSESSMENT AND DISCUSSION: 1. Hypertension. 2. Obesity. 3. COVID pneumonia. This is the 9th day of illness. She has a little bit of delirium, little bit of confusion. Job ID: [id number]
[2020-03-19] MEDS: Dexamethasone 4 mg/ml Vial SLOW IVP SCH (08:10)
[2020-03-19] MEDS: Metoprolol Tartrate 100 MG TAB PO SCH (08:12)
[2020-03-19] MEDS: Apixaban 5 MG TAB PO SCH ×2 (08:13→21:07)
[2020-03-19] MEDS: Amlodipine 5 MG TAB PO SCH ×2 (08:13→21:07)
--- NOTE | 2020-03-19 13:08 | PDOC.HOSPP ---
- Subjective Encounter Date: 03/19/20 Encounter Time: 13:06 Subjective: significant EMANUEL, requires 3-4 Li O2 at rest - Objective Vital Signs & Weight: Vital Signs (12 hours) Temp Pulse Pulse Pulse Resp BP BP 03/19/20 11:45 89 88 166/89 H 150/81 H 03/19/20 04:00 97.8 F 102 H 20 BP Pulse Ox Pulse Ox Pulse Ox 03/19/20 11:45 95 96 03/19/20 04:00 164/73 H 97 Weight Admit Weight 268 lb 8 oz Weight 268 lb 8 oz I&O: 03/18/20 03/19/20 03/20/20 06:59 06:59 06:59 Intake Total 240 Output Total 900 Balance -660 Result Diagrams: 03/16/20 05:53 03/16/20 05:53 Hospitalist ROS - Medication Medications: Active Medications Generic Name Dose Route Start Last Admin Trade Name Freq PRN Reason Stop Dose Admin Acetaminophen 650 mg 03/12/20 23:57 03/16/20 23:10 Tylenol PO 650 mg Q4H PRN Administration Headache/Fever/Mild Pain (1-3) Hydrocodone Bitart/Acetaminophen 1 tab 03/12/20 23:57 03/18/20 19:49 [place] 5/325 PO 1 tab Q4H PRN Administration Moderate Pain (4-6) Amlodipine Besylate 5 mg 03/13/20 09:00 03/19/20 08:13 Norvasc PO 5 mg BID GASTON Administration Apixaban 5 mg 03/13/20 09:00 03/19/20 08:13 Eliquis PO 5 mg BID GASTON Administration Dexamethasone 6 mg 03/13/20 09:00 03/19/20 08:10 Decadron SLOW IVP 6 mg DAILY GASTON Administration Loratadine 10 mg 03/14/20 13:51 03/17/20 00:58 Claritin PO 10 mg DAILY PRN Administration Itching Metoprolol Tartrate 100 mg 03/13/20 09:00 03/19/20 08:12 Lopressor PO 100 mg DAILY GASTON Administration Mineral Oil/White Petrolatum 0 gm 03/13/20 09:00 03/19/20 08:13 Aquaphor 99 Gm TOP 1 applic Q3D GASTON Administration Ondansetron HCl 4 mg 03/12/20 23:57 03/14/20 22:11 Zofran Odt PO 4 mg Q6H PRN Administration Nausea/Vomiting Pantoprazole Sodium 40 mg 03/13/20 09:00 03/19/20 08:12 Protonix PO 40 mg DAILY GASTON Administration - Exam General Appearance: awake alert Neck: no JVD Heart: RRR, no murmur Respiratory - other findings: decreased BS , no focal findings Gastrointestinal: soft, non-tender, non-distended, normal bowel sounds, no palpable masses Extremities: 1+ LE edema Hosp A/P (1) Acute respiratory failure with hypoxia Code(s): J96.01 - ACUTE RESPIRATORY FAILURE WITH HYPOXIA Status: Acute (2) DVT (deep venous thrombosis) Code(s): I82.409 - ACUTE EMBOLISM AND THOMBOS UNSP DEEP VN UNSP LOWER EXTREMITY Status: Acute Qualifiers: DVT location: lower extremity (3) Pneumonia due to COVID-19 virus Code(s): U07.1 - COVID-19; J12.89 - OTHER VIRAL PNEUMONIA Status: Acute (4) HTN (hypertension) Code(s): I10 - ESSENTIAL (PRIMARY) HYPERTENSION Status: Chronic Qualifiers: Hypertension type: essential hypertension Qualified Code(s): I10 - Essential (primary) hypertension - Plan complted remdisvir cont decadron still requiring 3-4 li per NC of O2 cont eliquis, metoprolol, amlodipine ID input apprciated
[2020-03-19] MEDS: Ondansetron ODT 4 MG TAB PO PRN (21:07)
[2020-03-19] MEDS: HYDROcodone/Acetaminophen 5/325 mg Tablet PO PRN (21:07)
[2020-03-19] MEDS: Loratadine 10 MG TAB PO PRN (21:07)
[2020-03-20] MEDS: Apixaban 5 MG TAB PO SCH ×2 (08:51→20:57)
[2020-03-20] MEDS: Dexamethasone 4 mg/ml Vial SLOW IVP SCH (08:51)
[2020-03-20] MEDS: Metoprolol Tartrate 100 MG TAB PO SCH (08:51)
[2020-03-20] MEDS: Amlodipine 5 MG TAB PO SCH ×2 (08:51→20:57)
[2020-03-20 13:09] LABS: ALT (SGPT) 22 U/L (8-55); AST (SGOT) 27 U/L (5-34); Albumin 3.2 g/dL (3.4-4.8); Alkaline Phosphatase 60 U/L (40-110); Anion Gap 17 mmol/L (10-20); BUN (Urea Nitrogen) 27 mg/dL (9.8-20.1); Bilirubin, Total 0.4 mg/dL (0.2-1.2); Calc. Creatinine Clearance 124 mL/min (70-130); Calcium 8.6 mg/dL (7.8-10.44); Carbon Dioxide 24 mmol/L (23-31); Chloride 103 mmol/L (98-107); Estimated GFR-MDRD 72; Glucose 209 mg/dL (83-110); Potassium 4.6 mmol/L (3.5-5.1); Protein, Total 7.2 g/dL (6.0-8.3); Sodium 139 mmol/L (136-145)
--- NOTE | 2020-03-20 13:15 | PDOC.HOSPP ---
- Subjective Encounter Date: 03/20/20 Encounter Time: 13:00 Subjective: alert, comfortable on 2 Li O2 pr NC, probably home in 1-3 days on OS. Gold to decide - Objective Vital Signs & Weight: Vital Signs (12 hours) Temp Pulse Resp BP Pulse Ox 03/20/20 09:00 98.9 F 115 H 30 H 161/90 H 95 03/20/20 08:00 95 Weight Admit Weight 268 lb 8 oz Weight 268 lb 8 oz Result Diagrams: 03/16/20 05:53 03/16/20 05:53 Hospitalist ROS - Medication Medications: Active Medications Generic Name Dose Route Start Last Admin Trade Name Freq PRN Reason Stop Dose Admin Acetaminophen 650 mg 03/12/20 23:57 03/16/20 23:10 Tylenol PO 650 mg Q4H PRN Administration Headache/Fever/Mild Pain (1-3) Hydrocodone Bitart/Acetaminophen 1 tab 03/12/20 23:57 03/19/20 21:07 [place] 5/325 PO 1 tab Q4H PRN Administration Moderate Pain (4-6) Amlodipine Besylate 5 mg 03/13/20 09:00 03/20/20 08:51 Norvasc PO 5 mg BID GASTON Administration Apixaban 5 mg 03/13/20 09:00 03/20/20 08:51 Eliquis PO 5 mg BID GASTON Administration Dexamethasone 6 mg 03/13/20 09:00 03/20/20 08:51 Decadron SLOW IVP 6 mg DAILY GASTON Administration Loratadine 10 mg 03/14/20 13:51 03/19/20 21:07 Claritin PO 10 mg DAILY PRN Administration Itching Metoprolol Tartrate 100 mg 03/13/20 09:00 03/20/20 08:51 Lopressor PO 100 mg DAILY GASTON Administration Mineral Oil/White Petrolatum 0 gm 03/13/20 09:00 03/19/20 08:13 Aquaphor 99 Gm TOP 1 applic Q3D GASTON Administration Ondansetron HCl 4 mg 03/12/20 23:57 03/19/20 21:07 Zofran Odt PO 4 mg Q6H PRN Administration Nausea/Vomiting Pantoprazole Sodium 40 mg 03/13/20 09:00 03/20/20 08:51 Protonix PO 40 mg DAILY GASTON Administration - Exam General Appearance: awake alert Neck: no JVD Heart: RRR, no murmur Respiratory - other findings: scattered rhochi Gastrointestinal: soft, normal bowel sounds Extremities: 1+ LE edema Hosp A/P (1) Acute respiratory failure with hypoxia Code(s): J96.01 - ACUTE RESPIRATORY FAILURE WITH HYPOXIA Status: Acute (2) DVT (deep venous thrombosis) Code(s): I82.409 - ACUTE EMBOLISM AND THOMBOS UNSP DEEP VN UNSP LOWER EXTREMITY Status: Acute Qualifiers: DVT location: lower extremity (3) Pneumonia due to COVID-19 virus Code(s): U07.1 - COVID-19; J12.89 - OTHER VIRAL PNEUMONIA Status: Acute (4) HTN (hypertension) Code(s): I10 - ESSENTIAL (PRIMARY) HYPERTENSION Status: Chronic Qualifiers: Hypertension type: essential hypertension Qualified Code(s): I10 - Essential (primary) hypertension - Plan complted remdisvir cont decadron x 10 days total still requiring 2 li per NC of O2 cont eliquis, metoprolol, amlodipine ID input apprciated
[2020-03-20 13:16] LABS: #Eosinphils 0.1 thou/uL (0.0-0.7); #Lymphocytes 0.9 thou/uL (1.20-3.40); #Monocytes 0.8 thou/uL (0.11-0.59); #Neutrophils 10.8 thou/uL (1.40-6.50); %Basophils 0.1 % (0.0-1.0); %Eosinophils 0.5 % (0.0-10.0); %Lymphocytes 6.8 % (21.0-51.0); %Monocytes 6.4 % (0.0-10.0); %Neutrophils 86.2 % (42.0-75.0); Hemoglobin 12.4 g/dL (12.0-16.0); Mean Corpuscular HGB CONC 31.4 g/dL (32.0-36.0); Mean Corpuscular Hemoglobin 26.4 pg (27.0-31.0); Mean Corpuscular Volume 83.9 fL (78.0-98.0); Mean Platelet Volume 8.3 fL (7.4-10.4); Platelet Count 516 thou/uL (130-400); Platelet Morphology Comment Appears Increased; RBC Distribution Width 16.2 % (11.5-14.5); RBC Morphology Normal; Red Blood Cell (RBC) Count 4.71 mill/uL (4.20-5.40); White Blood Cell (WBC) Count 12.6 thou/uL (4.8-10.8)
--- NOTE | 2020-03-20 16:49 | PRG ---
DATE OF SERVICE: 03/20/2020 SUBJECTIVE: Ms. Fabian is awake. She is watching television. She feels a little bit better. She is able to eat, still not comfortable at rest. Still having to take a breath while speaking her sentences. She denies any pain right now. She is voiding in the diaper. OBJECTIVE: VITAL SIGNS: Temperature has been normal, BP 140/79, pulse 97, respirations 20, and O2 saturation 95. GENERAL: The patient is awake, in no distress. LUNGS: With a few faint crackles at the bases. HEART: S1 and S2. Regular rate. ABDOMEN: Soft, not distended. She is voiding in the diaper. EXTREMITIES: She is able to move extremities with some difficulty. LABORATORY DATA: Sodium 139 and creatinine 0.78. White cell count 12.6, hemoglobin 12.4, platelets 516, and 86% neutrophils. D-dimer is down to 0.7. Ferritin is down to 97.68. C-reactive protein is down to 2.93. Two sets of blood culture, no growth in 5 days. ASSESSMENT AND DISCUSSION: 1. Hypertension. 2. Obesity. 3. COVID pneumonia. This is the 11th day of illness. Delirium has improved. Markers are steadily improving. I am afraid that she still has a quite a few more days to get to the point where she will be able to be discharged and she probably will need oxygen supplementation in the home setting for a while. Job ID: [id number]
[2020-03-20] MEDS: HYDROcodone/Acetaminophen 5/325 mg Tablet PO PRN (21:10)
[2020-03-21] MEDS: Amlodipine 5 MG TAB PO SCH ×2 (09:10→19:53)
[2020-03-21] MEDS: Metoprolol Tartrate 100 MG TAB PO SCH (09:10)
[2020-03-21] MEDS: Apixaban 5 MG TAB PO SCH ×2 (09:10→19:53)
[2020-03-21] MEDS: Dexamethasone 4 mg/ml Vial SLOW IVP SCH (09:16)
--- NOTE | 2020-03-21 13:19 | PDOC.HOSPP ---
- Subjective Encounter Date: 03/21/20 Encounter Time: 09:15 Subjective: sob is better is eating her breakfast - Objective Vital Signs & Weight: Vital Signs (12 hours) Temp Pulse Resp BP Pulse Ox 03/21/20 08:00 95 03/21/20 07:49 97.9 F 102 H 20 167/82 H 95 03/21/20 05:30 94 L 03/21/20 05:10 98.9 F 102 H 22 H 152/83 H 96 Weight Admit Weight 268 lb 8 oz Weight 268 lb 8 oz I&O: 03/20/20 03/21/20 03/22/20 06:59 06:59 06:59 Intake Total 120 Balance 120 Result Diagrams: 03/20/20 12:34 03/20/20 12:34 Hospitalist ROS - Medication Medications: Active Medications Generic Name Dose Route Start Last Admin Trade Name Freq PRN Reason Stop Dose Admin Acetaminophen 650 mg 03/12/20 23:57 03/16/20 23:10 Tylenol PO 650 mg Q4H PRN Administration Headache/Fever/Mild Pain (1-3) Hydrocodone Bitart/Acetaminophen 1 tab 03/12/20 23:57 03/20/20 21:10 [place] 5/325 PO 1 tab Q4H PRN Administration Moderate Pain (4-6) Amlodipine Besylate 5 mg 03/13/20 09:00 03/21/20 09:10 Norvasc PO 5 mg BID GASTON Administration Apixaban 5 mg 03/13/20 09:00 03/21/20 09:10 Eliquis PO 5 mg BID GASTON Administration Dexamethasone 6 mg 03/13/20 09:00 03/21/20 09:16 Decadron SLOW IVP 6 mg DAILY GASTON Administration Loratadine 10 mg 03/14/20 13:51 03/19/20 21:07 Claritin PO 10 mg DAILY PRN Administration Itching Metoprolol Tartrate 100 mg 03/13/20 09:00 03/21/20 09:10 Lopressor PO 100 mg DAILY GASTON Administration Mineral Oil/White Petrolatum 0 gm 03/13/20 09:00 03/19/20 08:13 Aquaphor 99 Gm TOP 1 applic Q3D GASTON Administration Ondansetron HCl 4 mg 03/12/20 23:57 03/19/20 21:07 Zofran Odt PO 4 mg Q6H PRN Administration Nausea/Vomiting Pantoprazole Sodium 40 mg 03/13/20 09:00 03/21/20 09:10 Protonix PO 40 mg DAILY GASTON Administration - Exam General Appearance: awake alert Eye: PERRL, anicteric sclera ENT: no oropharyngeal lesions, moist mucosa Neck: supple, no JVD Heart: RRR, no murmur Respiratory: no wheezes, rhonchi Gastrointestinal: soft, non-tender, non-distended, normal bowel sounds Extremities: no cyanosis, 2+ LE edema Neurological: cranial nerve grossly intact, no focal deficits Hosp A/P (1) Pneumonia due to COVID-19 virus Code(s): U07.1 - COVID-19; J12.89 - OTHER VIRAL PNEUMONIA Status: Acute (2) Acute respiratory failure with hypoxia Code(s): J96.01 - ACUTE RESPIRATORY FAILURE WITH HYPOXIA Status: Acute (3) DVT (deep venous thrombosis) Code(s): I82.409 - ACUTE EMBOLISM AND THOMBOS UNSP DEEP VN UNSP LOWER EXTREMITY Status: Chronic Qualifiers: DVT location: lower extremity (4) Stasis dermatitis of both legs Code(s): I87.2 - VENOUS INSUFFICIENCY (CHRONIC) (PERIPHERAL) Status: Chronic (5) HTN (hypertension) Code(s): I10 - ESSENTIAL (PRIMARY) HYPERTENSION Status: Chronic Qualifiers: Hypertension type: essential hypertension Qualified Code(s): I10 - Essential (primary) hypertension (6) Morbid obesity Code(s): E66.01 - MORBID (SEVERE) OBESITY DUE TO EXCESS CALORIES Status: Chronic - Plan is on dexamethasone, nasal O2, eliquis, norvasc, lopressor PT to mobilize as tolerated dc planning, will need home O2, HH and PT on discharge has LE edema with stasis dermatitis, BMI is 54 prognosis guarded says she ambulates at home and has ambulated in hallway??
[2020-03-21] MEDS: HYDROcodone/Acetaminophen 5/325 mg Tablet PO PRN ×2 (15:34→19:53)
[2020-03-22] MEDS: Acetaminophen 325 MG TAB PO PRN (09:12)
[2020-03-22] MEDS: Dexamethasone 4 mg/ml Vial SLOW IVP SCH (09:12)
[2020-03-22] MEDS: Amlodipine 5 MG TAB PO SCH (09:12)
[2020-03-22] MEDS: Metoprolol Tartrate 100 MG TAB PO SCH (09:13)
[2020-03-22] MEDS: Apixaban 5 MG TAB PO SCH (09:13)
--- NOTE | 2020-03-22 12:59 | PDOC.HOSPP ---
- Subjective Encounter Date: 03/22/20 Encounter Time: 11:25 Subjective: no sob, feels better has not amb yet eating well - Objective Vital Signs & Weight: Vital Signs (12 hours) Temp Pulse Resp BP Pulse Ox 03/22/20 09:22 98.0 F 95 24 H 160/72 H 95 03/22/20 08:00 95 Weight Admit Weight 268 lb 8 oz Weight 268 lb 8 oz I&O: 03/21/20 03/22/20 03/23/20 06:59 06:59 06:59 Intake Total 170 Output Total 700 Balance -530 Result Diagrams: 03/20/20 12:34 03/20/20 12:34 Hospitalist ROS - Medication Medications: Active Medications Generic Name Dose Route Start Last Admin Trade Name Freq PRN Reason Stop Dose Admin Acetaminophen 650 mg 03/12/20 23:57 03/22/20 09:12 Tylenol PO 650 mg Q4H PRN Administration Headache/Fever/Mild Pain (1-3) Hydrocodone Bitart/Acetaminophen 1 tab 03/12/20 23:57 03/21/20 19:53 [place] 5/325 PO 1 tab Q4H PRN Administration Moderate Pain (4-6) Amlodipine Besylate 5 mg 03/13/20 09:00 03/22/20 09:12 Norvasc PO 5 mg BID GASTON Administration Apixaban 5 mg 03/13/20 09:00 03/22/20 09:13 Eliquis PO 5 mg BID GASTON Administration Dexamethasone 6 mg 03/13/20 09:00 03/22/20 09:12 Decadron SLOW IVP 6 mg DAILY GASTON Administration Loratadine 10 mg 03/14/20 13:51 03/19/20 21:07 Claritin PO 10 mg DAILY PRN Administration Itching Metoprolol Tartrate 100 mg 03/13/20 09:00 03/22/20 09:13 Lopressor PO 100 mg DAILY GASTON Administration Mineral Oil/White Petrolatum 0 gm 03/13/20 09:00 03/22/20 09:13 Aquaphor 99 Gm TOP Not Given Q3D GASTON Ondansetron HCl 4 mg 03/12/20 23:57 03/19/20 21:07 Zofran Odt PO 4 mg Q6H PRN Administration Nausea/Vomiting Pantoprazole Sodium 40 mg 03/13/20 09:00 03/22/20 09:13 Protonix PO 40 mg DAILY GASTON Administration - Exam General Appearance: awake alert Eye: PERRL, anicteric sclera ENT: no oropharyngeal lesions, moist mucosa Neck: supple, no JVD Heart: RRR, no murmur Respiratory: no wheezes, no rales, rhonchi Gastrointestinal: soft, non-tender, non-distended, normal bowel sounds Extremities: no cyanosis, 2+ LE edema Neurological: cranial nerve grossly intact, no focal deficits Hosp A/P (1) Pneumonia due to COVID-19 virus Code(s): U07.1 - COVID-19; J12.89 - OTHER VIRAL PNEUMONIA Status: Acute (2) Acute respiratory failure with hypoxia Code(s): J96.01 - ACUTE RESPIRATORY FAILURE WITH HYPOXIA Status: Acute (3) DVT (deep venous thrombosis) Code(s): I82.409 - ACUTE EMBOLISM AND THOMBOS UNSP DEEP VN UNSP LOWER EXTREMITY Status: Chronic Qualifiers: DVT location: lower extremity (4) Stasis dermatitis of both legs Code(s): I87.2 - VENOUS INSUFFICIENCY (CHRONIC) (PERIPHERAL) Status: Chronic (5) HTN (hypertension) Code(s): I10 - ESSENTIAL (PRIMARY) HYPERTENSION Status: Chronic Qualifiers: Hypertension type: essential hypertension Qualified Code(s): I10 - Essential (primary) hypertension (6) Morbid obesity Code(s): E66.01 - MORBID (SEVERE) OBESITY DUE TO EXCESS CALORIES Status: Chronic (7) Physical deconditioning Code(s): R53.81 - OTHER MALAISE Status: Acute - Plan is on dexamethasone, nasal O2, eliquis, norvasc, lopressor PT to mobilize as tolerated, needs to amb and counselled patient dc planning, will need placement has LE edema with stasis dermatitis, BMI is 54 prognosis guarded d/w Case mgmt
--- NOTE | 2020-03-22 17:39 | DIS ---
DATE OF ADMISSION: 03/12/2020 DATE OF DISCHARGE: 03/22/2020 DISCHARGE DISPOSITION: [facility]. PRIMARY DISCHARGE DIAGNOSES: COVID-19 pneumonia, acute hypoxic respiratory failure secondary to COVID-19 pneumonia, deconditioning, history of deep venous thrombosis, chronic statis dermatitis of both lower extremities, hypertension, morbid obesity. PROCEDURES DONE DURING HOSPITALIZATION: Chest x-ray done on the day of admission showed bilateral peripheral lung infiltrates suggestive of COVID pneumonia. Hemoglobin and hematocrit 12 and 39, platelet count 516, white count of 12. D-dimer was 1.0 on the day of admission. Discharge BUN and creatinine are 27 and 0.7, albumin 3.2. CRP peaked up to 5.31, at the time of discharge is 2.93. Ferritin 97.6. COVID-19 PCR done on 03/12/2020 is positive. DISCHARGE MEDICATIONS: 1. Dexamethasone 6 mg p.o. daily for another 3 days. 2. DuoNeb 4 times daily p.r.n. 3. Omeprazole 40 mg p.o. daily. 4. Lopressor 100 mg extended release daily. 5. Pepcid 20 mg daily. 6. Eliquis 5 mg twice daily. 7. Amlodipine 5 mg twice daily. INPATIENT CONSULT: Dr. Malcolm for Infectious Disease. DISCHARGE PLAN: The patient to follow up with her primary care physician, Dr. Morales in 1 week. BRIEF COURSE DURING HOSPITALIZATION: The patient initially got admitted on the with complaints of shortness of breath and chills. Her initial COVID-19 PCR was positive. The patient required oxygen to keep saturations up and was tachypneic on arrival. She was placed on dexamethasone. The patient has history of DVT and was on Eliquis already. She has had consultation with Dr. aMlcolm. The patient received Remdesivir per prior records here. She has severe deconditioning and is barely able to sit at the edge of the bed. Her COVID-19 markers including CRP and ferritin are stable and improving. In view of deconditioning with COVID-19 pneumonia along with multiple medical issues including morbid obesity with BMI of 54, she is being discharged to [facility] for further recuperation prior to going home. Please see a [id number] documentation for the day of discharge on [employer]. TIME SPENT: A total of 35 minutes was spent on discharge plan. Job ID: [id number]
[2020-03-22 18:23] VITALS: BP 166/80; TEMP 98.1
== END 2020-03-22 19:19 | DRG 177 ==
LOC: ERS 20:03 → T4-A 23:08
PROVIDERS: ADMIT Internal Medicine; ATTEND Internal Medicine
PROC: 8E0ZXY6 Isolation (ICD-10-PCS; principal; 2020-03-12)
DX: U07.1 COVID-19 (principal); J12.89 Other viral pneumonia; J96.01 Acute respiratory failure with hypoxia; Z68.43 Body mass index [BMI] 50.0-59.9, adult; I10 Essential (primary) hypertension; I87.2 Venous insufficiency (chronic) (peripheral); R25.1 Tremor, unspecified; E66.01 Morbid (severe) obesity due to excess calories; R53.81 Other malaise; Z86.718 Personal history of other venous thrombosis and embolism; Z90.710 Acquired absence of both cervix and uterus; Z90.49 Acquired absence of other specified parts of digestive tract; Z88.2 Allergy status to sulfonamides; Z79.01 Long term (current) use of anticoagulants; Z79.899 Other long term (current) drug therapy
CPT/HCPCS: 36415; 71045; 80048; 80053; 80076; 82728; 83605; 84484; 85025; 85379; 86140; 87040; 93005; 96365; 96367; 96375; J0456; J0696; J1100; Q0162; U0002